=== PATIENT | male | born 1980 | race Caucasian/White ===

== ENCOUNTER 2018-06-02 17:45 | Emergency (ER) | payer MEDICARE, MEDICAID ==
[~2018-06-02] VITALS: Ht 170.2 cm; Wt 75.0 kg
[~2018-06-02 17:45] MED LIST: CLIN150C98 PO; DOCU100C40 PO; HYDR4TAB45 PO; LORA1TAB PO; NICO-687 TD
[2018-06-02 17:48] VITALS: BP 122/56
[2018-06-02] MEDS ORDERED: NAPR-56 PO (18:45)
[2018-06-02] MEDS ORDERED: HYDROcodone/acetaminophen 5mg/325mg tablet PO ONE (18:55)
== END 2018-06-02 19:23 | disposition home or self-care (01) ==
LOC: ER 17:45
DX: S90.30XA Contusion of unspecified foot, initial encounter (principal); F15.90 Other stimulant use, unspecified, uncomplicated; F11.90 Opioid use, unspecified, uncomplicated; Z88.8 Allergy status to other drugs, medicaments and biological substances; Z79.2 Long term (current) use of antibiotics; Z79.899 Other long term (current) drug therapy; Z98.890 Other specified postprocedural states; W01.0XXA Fall on same level from slipping, tripping and stumbling without subsequent striking against object, initial encounter; Y93.39 Activity, other involving climbing, rappelling and jumping off; Y92.89 Other specified places as the place of occurrence of the external cause; Y99.8 Other external cause status
CPT/HCPCS: 29515; 73630; 99284; A6449

== ENCOUNTER 2018-06-09 15:50 | Emergency (ER) | payer MEDICARE, MEDICAID ==
[~2018-06-09] VITALS: Ht 170.2 cm; Wt 74.9 kg
[~2018-06-09 15:50] MED LIST changes: +NAPR-56 PO
[2018-06-09] MEDS ORDERED: acetaminophen 325mg tablet PO ONE (16:25)
[2018-06-09] MEDS ORDERED: ketorolac trometh inj. 60 MG/2 ML VIAL IM ONE (16:25)
[2018-06-09 17:18] VITALS: BP 125/89
== END 2018-06-09 17:23 | disposition home or self-care (01) ==
LOC: ER 15:50
DX: M79.672 Pain in left foot (principal); F15.90 Other stimulant use, unspecified, uncomplicated; F11.90 Opioid use, unspecified, uncomplicated; Z88.8 Allergy status to other drugs, medicaments and biological substances; Z86.14 Personal history of Methicillin resistant Staphylococcus aureus infection; Z98.890 Other specified postprocedural states; Z79.899 Other long term (current) drug therapy
CPT/HCPCS: 96372; 99283; J1885